=== PATIENT | female | born 1995 | race Caucasian/White ===

== ENCOUNTER 2021-10-05 13:07 | Outpatient (CLI) | payer OTHER, SELFPAY ==
[2021-10-05 15:49] LABS: Clue Cells No Clue Cells Seen (None Seen); Trichomonas No Trichomonas Seen (None Seen); Yeast No Yeast Seen (None Seen)
[2021-10-05 15:50] LABS: Appearance Urine Clear (Clear); Bilirubin Urine Negative (Negative); Blood Urine Negative (Negative); Color Urine Yellow (Yellow); Glucose Urine Negative (Negative); Ketones Urine Negative (Negative); Leukocyte Esterase Urine Negative (Negative); Nitrite Urine Negative (Negative); Protein Urine Negative (Negative); Specific Gravity Urine 1.015 (1.000-1.030); Urobilinogen Urine 0.2 (0.2-1.0)
[2021-10-05 23:43] LABS: Chlamydia DNA Amplified* NOT DETECTED (No Detected); GC DNA Amplified* NOT DETECTED (No Detected)
== END 2021-10-05 13:08 | disposition home or self-care (01) ==
LOC: LKVREF 13:07
PROVIDERS: PCP Family Medicine; Visit Provider Nurse Practitioner Family
DX: N76.0 Acute vaginitis (principal); N39.0 Urinary tract infection, site not specified
CPT/HCPCS: 81003; 87210; 87491; 87591

== ENCOUNTER 2021-10-17 08:47 | Outpatient (CLI) | payer OTHER, SELFPAY ==
[2021-10-17 16:24] LABS: Chlamydia DNA Amplified* NOT DETECTED (No Detected); GC DNA Amplified* NOT DETECTED (No Detected)
== END 2021-10-17 08:48 | disposition home or self-care (01) ==
PROVIDERS: PCP Family Medicine; Visit Provider Family Medicine
DX: Z00.00 Encounter for general adult medical examination without abnormal findings (principal); Z11.3 Encounter for screening for infections with a predominantly sexual mode of transmission; Z12.4 Encounter for screening for malignant neoplasm of cervix
CPT/HCPCS: 87491; 87591; 87624; 88175

== ENCOUNTER 2022-01-23 18:11 | Outpatient (CLI) | payer OTHER, SELFPAY ==
[2022-01-24 01:09] LABS: Chlamydia DNA Amplified* NOT DETECTED (No Detected); GC DNA Amplified* NOT DETECTED (No Detected)
== END 2022-01-23 18:12 | disposition home or self-care (01) ==
PROVIDERS: PCP Family Medicine; Visit Provider Registered Nurse
DX: R10.2 Pelvic and perineal pain (principal); R35.0 Frequency of micturition; N89.8 Other specified noninflammatory disorders of vagina
CPT/HCPCS: 87086; 87491; 87591

== ENCOUNTER 2022-04-11 13:57 | Outpatient (CLI) | payer OTHER, SELFPAY | END 2022-04-11 13:58 | disposition home or self-care (01) | LOC: LKVREF 04-13 09:26 | PROVIDERS: PCP Family Medicine; Visit Provider Student in an Organized Health Care Education/Training Program | DX: N76.0 Acute vaginitis (principal) | CPT/HCPCS: 87086 ==

== ENCOUNTER 2022-04-30 15:42 | Outpatient (CLI) | payer OTHER, SELFPAY ==
[2022-04-30 20:20] LABS: GC DNA Amplified* NOT DETECTED (No Detected)
[2022-04-30 20:48] LABS: Chlamydia DNA Amplified* DETECTED (No Detected)
== END 2022-04-30 15:43 | disposition home or self-care (01) ==
LOC: NFLDREF 15:42
PROVIDERS: PCP Family Medicine; Visit Provider Physician Assistant
DX: N89.8 Other specified noninflammatory disorders of vagina (principal)
CPT/HCPCS: 87491; 87591

== ENCOUNTER 2022-05-15 11:36 | Outpatient (CLI) | payer OTHER, SELFPAY ==
[2022-05-15 13:50] LABS: Hepatitis B Surface Antigen* Negative (Negative)
[2022-05-15 13:59] LABS: HIV 1/2/P24 Combo Screen* Negative (Negative)
[2022-05-15 14:08] LABS: Hepatitis C Virus Antibody* Negative (Negative)
[2022-05-17 01:38] LABS: Rapid Plasma Reagin (RPR) Non Reactive (Non Reactive)
== END 2022-05-15 11:37 | disposition home or self-care (01) ==
PROVIDERS: PCP Family Medicine; Visit Provider Physician Assistant
DX: Z11.3 Encounter for screening for infections with a predominantly sexual mode of transmission (principal)
CPT/HCPCS: 86592; 86703; 86803; 87340

== ENCOUNTER 2022-06-22 08:02 | Outpatient (CLI) | payer OTHER, SELFPAY ==
[2022-06-22 14:01] LABS: Chlamydia DNA Amplified* NOT DETECTED (No Detected); GC DNA Amplified* NOT DETECTED (No Detected)
== END 2022-06-22 08:03 | disposition home or self-care (01) ==
PROVIDERS: PCP Family Medicine; Visit Provider Physician Assistant
DX: N89.8 Other specified noninflammatory disorders of vagina (principal)
CPT/HCPCS: 0353U; 87086; 87491; 87591

== ENCOUNTER 2022-07-03 14:08 | Outpatient (CLI) | payer OTHER, SELFPAY | END 2022-07-03 14:09 | disposition home or self-care (01) | LOC: LKVREF 14:09 | PROVIDERS: PCP Family Medicine; Visit Provider Registered Nurse | DX: N92.6 Irregular menstruation, unspecified (principal) | CPT/HCPCS: 84702 ==

== ENCOUNTER 2022-09-30 10:24 | Outpatient (CLI) | payer OTHER, SELFPAY | END 2022-09-30 10:25 | disposition home or self-care (01) | LOC: NFLDREF 10-01 08:44 | PROVIDERS: PCP Family Medicine; Referring Provider Family Medicine; Visit Provider Registered Nurse | DX: R35.89 Other polyuria (principal); N39.0 Urinary tract infection, site not specified; N30.01 Acute cystitis with hematuria | CPT/HCPCS: 87086 ==

== ENCOUNTER 2022-11-06 12:49 | Outpatient (CLI) | payer OTHER, SELFPAY ==
[2022-11-06 13:59] LABS: Clue Cells No Clue Cells Seen (None Seen); Trichomonas No Trichomonas Seen (None Seen); Yeast No Yeast Seen (None Seen)
== END 2022-11-06 12:50 | disposition home or self-care (01) ==
LOC: FBOREF 12:50
PROVIDERS: PCP Family Medicine; Visit Provider Family Medicine
DX: N89.8 Other specified noninflammatory disorders of vagina (principal)
CPT/HCPCS: 87210

== ENCOUNTER 2023-04-18 10:38 | Outpatient (CLI) | payer BC, SELFPAY ==
[2023-04-18 16:21] LABS: Bacterial Vaginosis* Not Detected (No Detected); Candida glab/krus Not Detected (No Detected); Candida species Not Detected (No Detected); Trichomonas vaginalis Not Detected (No Detected)
== END 2023-04-18 10:39 | disposition home or self-care (01) ==
LOC: FBOREF 10:39
PROVIDERS: PCP Family Medicine; Visit Provider Family Medicine
DX: N89.8 Other specified noninflammatory disorders of vagina (principal)
CPT/HCPCS: 81513; 87481; 87661

== ENCOUNTER 2024-10-16 08:56 | Outpatient (CLI) | payer BC, SELFPAY ==
[2024-10-18 18:54] LABS: HPV Source Cervix
[2024-10-21 07:59] LABS: Pap Test Digital Imaging Done
== END 2024-10-16 08:57 | disposition home or self-care (01) ==
PROVIDERS: PCP Family Medicine; Visit Provider Family Medicine
DX: Z12.4 Encounter for screening for malignant neoplasm of cervix (principal); R87.810 Cervical high risk human papillomavirus (HPV) DNA test positive
CPT/HCPCS: 80048; 80061; 85025; 87624; 87625; 88141; 88142; 88175

== ENCOUNTER 2025-02-26 17:35 | Outpatient (CLI) | payer OTHER, BC, SELFPAY | END 2025-02-26 17:36 | disposition home or self-care (01) | LOC: NFLDREF 03-03 12:40 | PROVIDERS: PCP Family Medicine; Referring Provider Family Medicine; Visit Provider Physician Assistant | DX: N89.8 Other specified noninflammatory disorders of vagina (principal) | CPT/HCPCS: 87491; 87591 ==